=== PATIENT | male | born 1980 | race Caucasian/White ===

== ENCOUNTER 2024-07-21 10:20 | Emergency (ER) | payer SELFPAY ==
[~2024-07-21] VITALS: Ht 180.3 cm; Wt 66.8 kg
[2024-07-21 10:26] VITALS: BP 122/77; TEMP 97.6
[2024-07-21] MEDS ORDERED: Naproxen 250 MG TAB PO ONE (11:15)
[2024-07-21 11:25] VITALS: PULSE 70
== END 2024-07-21 11:26 | disposition home or self-care (01) ==
LOC: COL.ER 10:20
DX: F19.10 Other psychoactive substance abuse, uncomplicated (principal); F17.290 Nicotine dependence, other tobacco product, uncomplicated